=== PATIENT | male | born 1960 | race Two or more races ===

== ENCOUNTER 2021-06-02 18:57 | Emergency (ER) | payer OTHER ==
[~2021-06-02] VITALS: Ht 193 cm; Wt 111.1 kg
[~2021-06-02 18:57] MED LIST: Apresoline 25MG TAB PO; CLARITHROMYCIN500 MG; DOLOGESIC CAPSU1 CAP; NORVASC 5MG TAB PO; TARKA 4/2401 BOTTLE; TOPROL XL50 M1 PO; XARELTO20 MG PO
== END 2021-06-02 21:37 | disposition home or self-care (01) ==
LOC: ER 18:57
DX: I10 Essential (primary) hypertension (principal)

== ENCOUNTER 2021-06-09 18:35 | Emergency (ER) | payer OTHER ==
[~2021-06-09] VITALS: Ht 190.5 cm; Wt 117.9 kg
== END 2021-06-09 23:33 | disposition home or self-care (01) ==
LOC: ER 18:35
DX: D69.6 Thrombocytopenia, unspecified (principal); E11.9 Type 2 diabetes mellitus without complications

== ENCOUNTER 2021-06-11 19:34 | Emergency (ER) | payer OTHER ==
[~2021-06-11] VITALS: Ht 190.5 cm; Wt 104.3 kg
== END 2021-06-11 22:25 | disposition home or self-care (01) ==
LOC: ER 19:34
DX: R07.89 Other chest pain (principal); R00.0 Tachycardia, unspecified; I10 Essential (primary) hypertension; E11.9 Type 2 diabetes mellitus without complications

== ENCOUNTER 2024-09-24 09:05 | Emergency (ER) | payer OTHER ==
[~2024-09-24] VITALS: Ht 190.5 cm; Wt 113.4 kg
[2024-09-24] MEDS ORDERED: CARVEDILOL ER40 MG PO (09:20)
[2024-09-24] MEDS ORDERED: HYDRALAZINE HCL50 MG PO (09:20)
[2024-09-24] MEDS ORDERED: FARXIGA10 MG PO (09:21)
[2024-09-24] MEDS ORDERED: ENTRESTO 97 MG1 EACH PO (09:21)
[2024-09-24] MEDS ORDERED: TRADJENTA5 MG PO (09:21)
[2024-09-24] MEDS ORDERED: LIPITOR20 MG PO (09:21)
[2024-09-24] MEDS ORDERED: TAMS0.4C PO (09:22)
[2024-09-24] MEDS ORDERED: ORPHENADRINE CITRATE 30 MG/ML AMPUL IM ONE (09:45)
[2024-09-24] MEDS ORDERED: ORPHENADRINE CITRATE 30 MG/ML AMPUL ONE ×2 (09:48→09:59)
[2024-09-24] MEDS ORDERED: NORFLEX100MG PO (10:43)
== END 2024-09-24 11:03 | disposition home or self-care (01) ==
LOC: ER 09:06
DX: M94.0 Chondrocostal junction syndrome [Tietze] (principal); I10 Essential (primary) hypertension; E11.9 Type 2 diabetes mellitus without complications; Z88.1 Allergy status to other antibiotic agents; Z88.0 Allergy status to penicillin; Z88.6 Allergy status to analgesic agent